=== PATIENT | female | born 1945 | race Caucasian/White ===

== ENCOUNTER 2023-07-19 12:45 | Emergency (ER) | payer BC ==
[2023-07-19 13:44] VITALS: TEMP 98.3; BMI 24.5
[2023-07-19] MEDS ORDERED: morphine CARPU-JECT 4 MG/1 ML DISP.SYRIN IVPUSH ONE (14:50)
[2023-07-19] MEDS ORDERED: KETAMINE HCL 200 MG/20 ML VIAL IVPUSH ONE (15:52)
[2023-07-19] MEDS ORDERED: LORazepam 2 MG/ML SDV VIAL IVPUSH STA (15:52)
[2023-07-19] MEDS ORDERED: KETAMINE HCL 200 MG/20 ML VIAL ONE (15:54)
[2023-07-19 17:27] VITALS: BP 160/74; PULSE 91; RESP 16
== END 2023-07-19 17:45 | disposition home or self-care (01) ==
LOC: JERFT 12:45 → JER 12:45
PROC: 0RSJXZZ Reposition Right Shoulder Joint, External Approach (ICD-10-PCS; principal; 2023-07-19)
PROC: 3E033GC Introduction of Other Therapeutic Substance into Peripheral Vein, Percutaneous Approach (ICD-10-PCS; 2023-07-19)
DX: M25.511 Pain in right shoulder (principal); S43.004A Unspecified dislocation of right shoulder joint, initial encounter; W19.XXXA Unspecified fall, initial encounter
CPT/HCPCS: 73030-TC-RT-FY; 99284-25